=== PATIENT | female | born 2000 | race Caucasian/White ===

== ENCOUNTER 2020-01-14 16:52 | Outpatient (CLI) | payer BC, OTHER ==
--- NOTE | 2020-01-14 17:43 | Non Stress Test Report ---
Non Stress Test Datetime Report Generated by CPN: 01/14/2020 17:43 DEMOGRAPHIC Test Number: 1 EGA NST: 36.4 INDICATION Indication for Study (NST) Other: uc's MONITORING Monitor Explained: Monitor Explained; Test Explained; Patient Verbalized Understanding Time on Monitor: 01/14/2020 17:15 Time off Monitor: 01/14/2020 17:37 NST Duration: 22 NST INTERVENTIONS NST Interventions: None Physician Notified NST: Dr Das BABY A: [id number] BABY A Movement : Present Contraction Frequency : irregular FHR Baseline : 135 Accelerations : 15X15 Decelerations : None Variability : Moderate 6-25bpm NST Review: Meets Criteria for Reactive NST NST Review and Verified By : SAutry NST Results: Reactive NST REPORT Report Trigger: Send Report
== END 2020-01-14 17:49 | disposition home or self-care (01) ==
LOC: LC 16:52
PROVIDERS: ATTEND Obstetrics & Gynecology Gynecology
DX: O47.03 False labor before 37 completed weeks of gestation, third trimester (principal); Z3A.36 36 weeks gestation of pregnancy
CPT/HCPCS: 59025

== ENCOUNTER 2020-02-02 05:08 | Inpatient (IN) | payer BC, OTHER ==
[2020-01-28 09:22] LABS: ABSOLUTE BASOPHILS # (AUTO) 0.1 10^3/uL (0.0-0.2); ABSOLUTE EOSINOPHILS # (AUTO) 0.2 10^3/uL (0.0-0.6); ABSOLUTE LYMPHOCYTES (AUTO) 1.3 10^3/uL (0.5-4.7); ABSOLUTE MONOCYTES (AUTO) 0.7 10^3/uL (0.1-1.4); BASOPHILS % (AUTO) 0.6 % (0-2); EOSINOPHILS % (AUTO) 1.8 % (0-6); HEMATOCRIT 28.9 % (36.0-47.0); HEMOGLOBIN 9.3 g/dL (12.0-15.5); MEAN CORPUSCULAR HEMOGLOBIN 23.2 pg (27.0-33.4); MEAN CORPUSCULAR HGB CONC 32.4 g/dL (32.0-36.0); MEAN CORPUSCULAR VOLUME 72 fl (80-97); MONOCYTES % (AUTO) 6.6 % (3-13); PLATELET COUNT 233 10^3/uL (150-450); RED BLOOD COUNT 4.03 10^6/uL (3.72-5.28); TOTAL CELLS COUNTED % (AUTO) 100 %; WHITE BLOOD COUNT 10.3 10^3/uL (4.0-10.5)
[2020-01-28 09:31] LABS: APPEARANCE,URINE CLEAR; BILIRUBIN,URINE NEGATIVE (NEGATIVE); COLOR,URINE YELLOW; GLUCOSE, URINE NEGATIVE (NEGATIVE); KETONES,URINE NEGATIVE (NEGATIVE); LEUKOCYTE ESTERASE,URINE MODERATE (NEGATIVE); NITRITE,URINE NEGATIVE (NEGATIVE); PROTEIN,URINE NEGATIVE (NEGATIVE); URINE SPECIFIC GRAVITY 1.016; UROBILINOGEN,URINE NEGATIVE mg/dL (<2.0)
[2020-01-28 09:41] LABS: URINE AMPHETAMINES SCREEN NEGATIVE; URINE BARBITURATES SCREEN NEGATIVE; URINE BENZODIAZEPINES SCREEN NEGATIVE; URINE COCAINE SCREEN NEGATIVE; URINE MARIJUANA (THC) SCREEN NEGATIVE; URINE METHADONE SCREEN NEGATIVE; URINE PHENCYCLIDINE SCREEN NEGATIVE
[~2020-02-02 05:08] MED LIST: CEFAZOLIN 2 GM/D5W RTU 2 GM/50 ML RTUPB IV PRN; LACTATED RINGERS 1000 ML IV PRN; LIDOCAINE 0.5% INJ-PF (5 MG/ML) 50 ML SDV SUBCUT PRN; RINGERS SOLUTION,LACTATED 1,000 ML IV PRN
[2020-02-02] MEDS ORDERED: MIDAZOLAM 2 MG/2 ML INJ ONE (07:28)
[2020-02-02] MEDS ORDERED: KETOROLAC TROMETHAMINE INJ/PF 30 MG/1 ML SDV ONE (07:28)
[2020-02-02] MEDS ORDERED: FENTANYL CITRATE INJ/PF 100 MCG/2 ML AMPUL ONE (07:28)
[2020-02-02] MEDS ORDERED: OXYTOCIN 10 UNIT/ML VIAL ONE (07:28)
[2020-02-02] MEDS ORDERED: EPHEDRINE SULFATE INJ 50 MG/1 ML AMPULE ONE (07:28)
[2020-02-02] MEDS ORDERED: ONDANSETRON HCL INJ/PF 4 MG/2 ML SDV ONE (07:29)
[2020-02-02] MEDS ORDERED: ACETAMINOPHEN 1,000 MG/100 ML RTUPB IV ONE (07:29)
[2020-02-02] MEDS ORDERED: ROPIVACAINE HCL 0.2% INJ/PF (2 MG/ML) 20 ML SDV ONE (07:29)
[2020-02-02] MEDS ORDERED: DIPH/PERTUSS(ACELL)/TETANUS VAC/PF 0.5 ML SYR (>=10YO) IM PRN (08:57)
[2020-02-02] MEDS ORDERED: OXYTOCIN/0.9 % SODIUM CHLORIDE 30 UNIT/500 ML RTUINJ IV PRN (08:57)
[2020-02-02] MEDS ORDERED: MEASLES,MUMPS&RUBELLA VACC/PF 0.5 ML VIAL SUBCUT PRN (08:57)
[2020-02-02] MEDS ORDERED: SIMETHICONE 80 MG TAB.CHEW PO PRN (08:57)
[2020-02-02] MEDS ORDERED: RINGERS SOLUTION,LACTATED 1,000 ML IV PRN (08:57)
[2020-02-02] MEDS ORDERED: PROMETHAZINE HCL INJ 25 MG/1 ML VIAL IV PRN (08:57)
[2020-02-02] MEDS ORDERED: ACETAMINOPHEN 325 MG TABLET PO PRN (08:57)
[2020-02-02] MEDS ORDERED: OXYCODONE-ACETAMINOPHEN 5-325 MG TABLET PO PRN (08:57)
[2020-02-02] MEDS ORDERED: HYDROMORPHONE HCL INJ/PF 2 MG/ML AMPULE IV PRN (08:58)
--- NOTE | 2020-02-02 09:09 | Operative Report ---
Operative Report DATE OF SURGERY: 02/02/20 PREOPERATIVE DIAGNOSIS: Prior section x1. Term IUP at 39+ weeks EGA. Bicornuate uterus. Breech presentation POSTOPERATIVE DIAGNOSIS: Same as above OPERATION: Repeat section ANESTHESIA: Spinal TISSUE REMOVED OR ALTERED: Placenta COMPLICATIONS: None ESTIMATED BLOOD LOSS: 700cc INTRAOPERATIVE FINDINGS: Bicorniuate uterus with viabable female in left side-breech presentation. Bilateral ovaries and fallopian tubes normal grossly. Mild scar tissue at level of rectus fascia PROCEDURE: IV fluids: per anesthesia record Urinary output: 250 cc Findings: Bicornuate (heart shaped) appearing uterus, normal bilateral fallopian tubes and ovaries. Placenta normal grossly. Viable female with Apgars of 8 and 9, at 1 and 5 minutes respectively. Position: To recovery room in stable condition Description of procedure: The patient was taken to the operating room and spinal anesthesia was administered and found to be adequate. She was then placed on the OR table in the supine position with a slight leftward tilt. Patient was prepped and draped in usual sterile fashion. Ancef 2 gms was given IV prior to the procedure for infection prophylaxis. Timeout was taken. A Pfannenstiel skin incision was then made approximately 3 cm above the pubic symphysis and carried down to level the rectus fascia. The rectus fascia was then nicked in the midline with a scalpel and the fascial incision was extended laterally with use of curved Kenney scissors. The rectus fascia was then grasped with 2 Kocker clamps elevated and the underlying rectus muscle was dissected off both bluntly and sharply. Scar tissue noted as above. Any bleeding controlled with cautery. The rectus muscles were then split in the midline and the peritoneum was entered. The peritoneal incision was then extended by manually stretching the peritoneum. The bladder blade was positioned. Bladder flap created and the bladder was noted to be out of harm's way. A scalpel was then used in the lower uterine for the hysterotomy, slowly until amniotomy was obtained a large amount of fluid was noted. The uterine incision was then manually stretched. The infant was noted to be in breech postion. Feet and legs brought through the hysterotomy incision and trunk delivered to the level of the scapula. Each arm delivered without difficulty. The head then delivered with minmal difficulty. The cord was cut clamped and the was handed off to the nurse awaiting. was crying prior to hand off- oral suctioning done before hand off. The placenta was manually delivered. Using a lap gauze the uterus was cleared of all clots and debris. The uterus was then exteriorized and a bladder blade was repositioned. The uterine incision was then closed with 0 Chromic suture in a running locked fashion. A second layer of the same suture was used in a running locked imbricated fashion. The uterine incision was inspected and noted to be hemostatic. The posterior aspect of the uterus was then inspected and anatomy was seen as above. The uterus was returned to its normal anatomic position within the abdominal cavity. Warm saline irrigation was used to clear all clots and debris from the abdomen. The uterine incision was inspected once more and noted to remain hemostatic. The bladder blade was removed and the peritoneum was closed with 2-0 chromic in a running fashion. The rectus muscles were then reapproximated and the rectus fascia was closed with a #1 PDS in a running fashion. The subcutaneous tissue was then inspected and any bleeding was controlled with Bovie electrocautery. The subcutaneous tissue was then closed with 2-0 Plain Gut suture in a running fashion. The skin was then closed with 4-0 Monocryl in a running subcuticular fashion. The skin incision was then clean dried and Dermabond was applied over the skin incision. All instrument sponge and needle counts were correct x3 for the procedure the patient tolerated the procedure well. She will proceed to recovery room in stable condition
[2020-02-02] MEDS ORDERED: HYDROMORPHONE HCL INJ/PF 2 MG/ML AMPULE ONE (09:33)
--- NOTE | 2020-02-02 09:52 | Delivery Summary ---
Del Sum A-C Datetime Report Generated by CPN: 02/02/2020 09:52 DELIVERY PERSONNEL DELIVERY PERSONNEL: [id number] Delivery Doctor:: Sue Lopez MD BIOLOGY INSTRUCTOR:: Mary Medina CRNA Consulting Technical Director:: Radha Monteiro RN Transfer Clerk:: Dr. Naman Garcia Nursery Nurse:: Caridad Hoffmann RN Numerical Control Machine Machinist/FAMILY LAW MEDIATOR: [facility] Numerical Control Machine Machinist/FAMILY LAW MEDIATOR: Estella Garcia, CAKE DECORATOR MATERNAL INFORMATION Delivery Anesthesia: Spinal Medications After Delivery: Pitocin Drip 20 Units/1000ml NSS Maternal Complications: None LABOR SUMMARY EDC: 02/07/2020 00:00 No. Babies in Womb: 1 Attempted: No Labor Anesthesia: None LABOR INFORMATION Reason for Induction: Not Applicable Oxytocin: N/A Group B Beta Strep: negative Steroids Given: None Reason Steroids Not Administered: Not Applicable MEMBRANES Membranes Rupture Method: Artificial Rupture of Membranes: 02/02/2020 08:19 Length of Rupture (hr): 0.02 Amniotic Fluid Color: Clear Amniotic Fluid Amount: Moderate Amniotic Fluid Odor: Normal STAGES OF LABOR Stage 3 hr: 0 Stage 3 min: 3 VAGINAL DELIVERY Episiotomy: None Laceration #1: None Laceration Repair: Not Applicable Sponge Count Correct: N/A Sharps Count Correct: N/A CSECTION DELIVERY Primary Indication: Repeat Elective CSection Urgency: Scheduled CSection Incidence: Repeat Labor: No Labor Elective: Elective CSection Incision: Lower Uterine Transverse BABY A INFORMATION Delivery Date/Time: 02/02/2020 08:20 Method of Delivery: Born in Route : No : N/A Forceps: N/A Vacuum Extraction: N/A Shoulder Dystocia : No PRESENTATION/POSITION BABY A Presentation: Breech Breech Presentation: Double Footling PLACENTA INFORMATION BABY A Placenta Delivery Time : 02/02/2020 08:23 Placenta Method of Delivery: Spontaneous Placenta Status: Delivered SCORES BABY A Heart Rate 1 min: >100 bpm Resp Effort 1 min: Good Cry Reflex Irritability 1 min: Cough or Sneeze or Pulls Away Muscle Tone 1 min: Active Motion Color 1 min: Blue/Pale Resuscitation Effort 1 min: Tactile Stimulation SCORE 1 MIN: 8 Heart Rate 5 min: >100 bpm Resp Effort 5 min: Good Cry Reflex Irritability 5 min: Cough or Sneeze or Pulls Away Muscle Tone 5 min: Active Motion Color 5 min: Body [place], Extremities Blue Resuscitation Effort 5 min: Tactile Stimulation SCORE 5 MIN: 9 INFANT INFORMATION BABY A Gestational Age at Delivery: 39.2 Gestational Status: Full Term- 39- 40.6 Weeks Infant Outcome : Liveborn Infant Condition : Stable Infant Sex: Female WEIGHT/LENGTH BABY A Birthweight (gm): 3340 Weight (lb): 7 Weight (oz): 6 Infant Length (in): 20.50 Infant Length (cm): 52.07 CORD INFORMATION BABY A No. Cord Vessels: 3 Nuchal Cord : N/A Cord Blood Taken: Yes-For Storage (Mom's Blood type +) Suction: Mouth ASSESSMENT BABY A Infant Complications: None Physical Findings at Delivery: Within Normal Limits Respirations: Appears Normal Skin to Skin: No Transfer Clerk/ALS Called : Yes Care By: Flora Hoffmann RN Transferred To: Nursery BABY B INFORMATION : N/A
[2020-02-02] MEDS: PRENATAL VITAMIN W DHA CAPSULE PO SCH (10:35)
[2020-02-02] MEDS: DOCUSATE SODIUM 100 MG CAPSULE PO SCH ×2 (10:35→17:16)
[2020-02-02] MEDS ORDERED: MORPHINE SULFATE 10 MG/ML INJ IV ONE (10:38)
[2020-02-02] MEDS ORDERED: MORPHINE SULFATE 10 MG/ML INJ ONE (10:40)
[2020-02-02] MEDS ORDERED: KETOROLAC TROMETHAMINE INJ/PF 30 MG/1 ML SDV IV SCH (14:00)
[2020-02-02] MEDS: KETOROLAC TROMETHAMINE INJ/PF 30 MG/1 ML SDV IV SCH (17:16)
[2020-02-02] MEDS: OXYCODONE-ACETAMINOPHEN 5-325 MG TABLET PO PRN (22:18)
[2020-02-03] MEDS: KETOROLAC TROMETHAMINE INJ/PF 30 MG/1 ML SDV IV SCH (01:39)
[2020-02-03] MEDS: OXYCODONE-ACETAMINOPHEN 5-325 MG TABLET PO PRN (05:57)
[2020-02-03 06:41] LABS: MEAN CORPUSCULAR HEMOGLOBIN 22.6 pg (27.0-33.4); MEAN CORPUSCULAR HGB CONC 31.7 g/dL (32.0-36.0); MEAN CORPUSCULAR VOLUME 71 fl (80-97); PLATELET COUNT 172 10^3/uL (150-450); RED BLOOD COUNT 3.37 10^6/uL (3.72-5.28); RED CELL DISTRIBUTION WIDTH 16.9 % (11.5-14.0)
[2020-02-03 06:45] LABS: HEMOGLOBIN 7.6 g/dL (12.0-15.5)
[2020-02-03] MEDS ORDERED: IRON SUCROSE COMPLEX INJ/PF 100 MG/5 ML SDV IV ONE (08:00)
[2020-02-03] MEDS: IBUPROFEN 800 MG TABLET PO SCH ×2 (09:40→18:14)
[2020-02-03] MEDS: DOCUSATE SODIUM 100 MG CAPSULE PO SCH ×2 (09:40→18:14)
[2020-02-03] MEDS: PRENATAL VITAMIN W DHA CAPSULE PO SCH (09:40)
--- NOTE | 2020-02-03 12:47 | PDOC PROGRESS REPORT ---
Subjective-OB Progress Note for:: 02/03/20 Subjective: 20yo G3 now P2 s/p repeat ppd 1 . Pt ambulating and voiding without difficulty. Denies sob,lightheadedness, dizziness or any concerns today. Reports pain well controlled with medication Physical Exam (OB) Vital Signs: Temp Pulse Resp BP Pulse Ox 98.0 F 66 16 107/66 98 02/03/20 08:20 02/03/20 08:20 02/03/20 08:20 02/03/20 08:20 02/03/20 08:20 Intake & Output 02/02/20 02/03/20 02/04/20 06:59 06:59 06:59 Intake Total 600 Output Total 2450 Balance -1850 - General General Appearance: Appears well In distress: None - PIH/Pre-Eclampsia Clonus: Negative Headache: Absent Epigastric Pain: No Visual Changes: No - Dressing Removed: No Incision: Dressing Closure Type: Surgical Glue - Bilateral Tubal Ligation Dressing Removed: No - Lochia Lochia Amount: Small 10-25 ml Lochia Color: Rubra/Red - Abdomen Description: Firm Hernia Present: No Fundal Description: Firm Fundal Height: u/u - u/2 - Respiratory Respiratory Status: No respiratory distress - Extremities Upper extremity: Normal inspection Lower extremities: Normal inspection - Neurological Cognition: Normal Orientation: AAOx4 - Psychological Associated symptoms: Normal affect, Normal mood Objective-Diagnostic Laboratory: 02/03/20 06:00 02/03/20 06:00 WBC 12.0 H RBC 3.37 L Hgb 7.6 L Hct 24.0 L MCV 71 L MCH 22.6 L MCHC 31.7 L RDW 16.9 H Plt Count 172 Assessment and Plan(PN) - Assessment and Plan (1) Anemia complicating , third trimester Is this a current diagnosis for this admission?: Yes Plan: had IV iron this am, increase dietary iron and FeSO4 bid, continue to monitor for s/s of hemorrhage (2) Acute blood loss anemia Is this a current diagnosis for this admission?: Yes Plan: same as above, will repeat CBC in the AM (3) Bicornate uterus complicating Qualifiers: Trimester: third trimester Qualified Code(s): O34.03 - Maternal care for unspecified congenital malformation of uterus, third trimester; Q51.3 - Bicornate uterus Is this a current diagnosis for this admission?: Yes Plan: delivered (4) Status post repeat low transverse section Is this a current diagnosis for this admission?: Yes Plan: routine pp care - Time Spent with Patient Time with patient: Less than 15 minutes Smoking Education Provided: Over 3 minutes Medications reviewed and adjusted accordingly: Yes - Disposition Anticipated Discharge: Home Within: within 24 hours
[2020-02-03] MEDS ORDERED: IBUPROFEN 800 MG TABLET PO SCH (14:00)
[2020-02-04] MEDS: IBUPROFEN 800 MG TABLET PO SCH ×2 (02:10→09:53)
[2020-02-04 05:38] LABS: HEPATITIS C VIRUS AB <0.1 s/co ratio (0.0-0.9)
[2020-02-04 06:57] LABS: HEMATOCRIT 25.1 % (36.0-47.0); MEAN CORPUSCULAR HEMOGLOBIN 22.4 pg (27.0-33.4); MEAN CORPUSCULAR HGB CONC 31.4 g/dL (32.0-36.0); MEAN CORPUSCULAR VOLUME 71 fl (80-97); PLATELET COUNT 184 10^3/uL (150-450); RED BLOOD COUNT 3.51 10^6/uL (3.72-5.28); RED CELL DISTRIBUTION WIDTH 17.8 % (11.5-14.0); WHITE BLOOD COUNT 11.2 10^3/uL (4.0-10.5)
[2020-02-04 06:58] LABS: HEMOGLOBIN 7.9 g/dL (12.0-15.5)
[2020-02-04] MEDS: PRENATAL VITAMIN W DHA CAPSULE PO SCH (09:53)
[2020-02-04] MEDS: DOCUSATE SODIUM 100 MG CAPSULE PO SCH (09:54)
--- NOTE | 2020-02-04 10:05 | PDOC PROGRESS REPORT ---
Subjective-OB Progress Note for:: 02/04/20 Subjective: Doing well, ready to go home, pain under control, eating and voiding, passing gas Physical Exam (OB) Vital Signs: Temp Pulse Resp BP Pulse Ox 97.4 F 64 16 112/64 100 02/04/20 07:23 02/04/20 07:23 02/04/20 07:23 02/04/20 07:23 02/04/20 07:23 Intake & Output 02/03/20 02/04/20 02/05/20 06:59 06:59 06:59 Intake Total 600 1100 Output Total 2450 Balance -1850 1100 - PIH/Pre-Eclampsia Clonus: Negative Headache: Absent Epigastric Pain: No Visual Changes: No - Dressing Removed: No Incision: Well Approximated Closure Type: Surgical Glue - Bilateral Tubal Ligation Dressing Removed: No - Lochia Lochia Amount: Scant < 10 ml Lochia Color: Rubra/Red - Abdomen Description: Soft Hernia Present: No Fundal Description: Firm, Midline Fundal Height: u/u - u/2 Objective-Diagnostic Laboratory: 02/04/20 06:22 02/04/20 06:22 WBC 11.2 H RBC 3.51 L Hgb 7.9 L Hct 25.1 L MCV 71 L MCH 22.4 L MCHC 31.4 L RDW 17.8 H Plt Count 184 Assessment and Plan(PN) - Assessment and Plan (1) Anemia complicating , third trimester Is this a current diagnosis for this admission?: Yes (2) Acute blood loss anemia Is this a current diagnosis for this admission?: Yes (3) Bicornate uterus complicating Qualifiers: Trimester: third trimester Qualified Code(s): O34.03 - Maternal care for unspecified congenital malformation of uterus, third trimester; Q51.3 - Bicornate uterus Is this a current diagnosis for this admission?: Yes (4) Status post repeat low transverse section Is this a current diagnosis for this admission?: Yes - Time Spent with Patient Time with patient: Less than 15 minutes Smoking Education Provided: Over 3 minutes Medications reviewed and adjusted accordingly: Yes - Disposition Anticipated Discharge: Home Within: within 24 hours
--- NOTE | 2020-02-04 10:10 | PDOC DISCHARGE SUMMARY ---
Impression - Admit/DC Date/PCP Admission Date/Primary Care Provider: 02/02/20 05:08 CAROLINA XAVIER MD Discharge Date: 02/04/20 - Discharge Diagnosis (1) Anemia complicating , third trimester Is this a current diagnosis for this admission?: Yes (2) Acute blood loss anemia Is this a current diagnosis for this admission?: Yes (3) Bicornate uterus complicating Is this a current diagnosis for this admission?: Yes (4) Status post repeat low transverse section Is this a current diagnosis for this admission?: Yes - Additional Information Discharge Diet: As Tolerated, Regular Discharge Activity: Activity As Tolerated, No Driving, Pelvic Rest, No tub bath Referrals: CAROLINA XAVIER MD [Primary Care Provider] - ([facility] 1 week) Prescriptions: Oxycodone HCl/Acetaminophen [Percocet 5-325 mg Tablet] 1 tab PO Q4HP PRN #20 tablet PRN Reason: Ibuprofen [Motrin 800 mg Tablet] 800 mg PO Q8H #60 tablet Home Medications: Ferrous Sulfate [Feosol 325 mg Tablet] 325 mg PO DAILY 01/14/20 Pnv 102/Iron/Folate 1/Dss/Dha [Vitafol Fe+ Docusate Combo Pck] 1 each PO DAILY 01/14/20 Ibuprofen [Motrin 800 mg Tablet] 800 mg PO Q8H #60 tablet 02/04/20 Oxycodone HCl/Acetaminophen [Percocet 5-325 mg Tablet] 1 tab PO Q4HP PRN #20 tablet 02/04/20 HPI Gestational Age: 39 Reason(s) for Admission: Ceasarean Section-Repeat Procedures: NST, Ultrasound Intrapartum Procedure(s): : Low Cervical, Transverse Hospital Course Hospital Course: normal post op Results Laboratory Results: WBC 11.2 10^3/uL (4.0-10.5) H 02/04/20 06:22 RBC 3.51 10^6/uL (3.72-5.28) L 02/04/20 06:22 Hgb 7.9 g/dL (12.0-15.5) L 02/04/20 06:22 Hct 25.1 % (36.0-47.0) L 02/04/20 06:22 MCV 71 fl (80-97) L 02/04/20 06:22 MCH 22.4 pg (27.0-33.4) L 02/04/20 06:22 MCHC 31.4 g/dL (32.0-36.0) L 02/04/20 06:22 RDW 17.8 % (11.5-14.0) H 02/04/20 06:22 Plt Count 184 10^3/uL (150-450) 02/04/20 06:22 Lymph % (Auto) 13.0 % (13-45) 01/28/20 08:31 [place] % (Auto) 6.6 % (3-13) 01/28/20 08:31 Eos % (Auto) 1.8 % (0-6) 01/28/20 08:31 Baso % (Auto) 0.6 % (0-2) 01/28/20 08:31 Absolute Neuts (auto) 8.0 10^3/uL (1.7-8.2) 01/28/20 08:31 Absolute Lymphs (auto) 1.3 10^3/uL (0.5-4.7) 01/28/20 08:31 Absolute Monos (auto) 0.7 10^3/uL (0.1-1.4) 01/28/20 08:31 Absolute Eos (auto) 0.2 10^3/uL (0.0-0.6) 01/28/20 08:31 Absolute Basos (auto) 0.1 10^3/uL (0.0-0.2) 01/28/20 08:31 Seg Neutrophils % 78.0 % (42-78) 01/28/20 08:31 Urine Color YELLOW 01/28/20 08:22 Urine Appearance CLEAR 01/28/20 08:22 Urine pH 7.0 (5.0-9.0) 01/28/20 08:22 Ur Specific [place] 1.016 01/28/20 08:22 Urine Protein NEGATIVE mg/dL (NEGATIVE) 01/28/20 08:22 Urine Glucose (UA) NEGATIVE mg/dL (NEGATIVE) 01/28/20 08:22 Urine Ketones NEGATIVE mg/dL (NEGATIVE) 01/28/20 08:22 Urine Blood NEGATIVE (NEGATIVE) 01/28/20 08:22 Urine Nitrite NEGATIVE (NEGATIVE) 01/28/20 08:22 Urine Bilirubin NEGATIVE (NEGATIVE) 01/28/20 08:22 Urine Urobilinogen NEGATIVE mg/dL (<2.0) 01/28/20 08:22 Ur Leukocyte Esterase MODERATE (NEGATIVE) H 01/28/20 08:22 Urine WBC (Auto) 3 /HPF 01/28/20 08:22 Urine RBC (Auto) 1 /HPF 01/28/20 08:22 Urine Bacteria (Auto) TRACE /HPF 01/28/20 08:22 Squamous Epi Cells Auto 3 /HPF 01/28/20 08:22 Urine Mucus (Auto) OCC /LPF 01/28/20 08:22 Urine Ascorbic Acid NEGATIVE (NEGATIVE) 01/28/20 08:22 Urine Opiates Screen NEGATIVE 01/28/20 08:22 Urine Methadone Screen NEGATIVE 01/28/20 08:22 Ur Barbiturates Screen NEGATIVE 01/28/20 08:22 Ur Phencyclidine Scrn NEGATIVE 01/28/20 08:22 Ur Amphetamines Screen NEGATIVE 01/28/20 08:22 U Benzodiazepines Scrn NEGATIVE 01/28/20 08:22 Urine Cocaine Screen NEGATIVE 01/28/20 08:22 U Marijuana (THC) Screen NEGATIVE 01/28/20 08:22 COVID-19 Source NASOPHARYNGEAL 01/28/20 08:29 COVID-19 (ELLI) NOT DETECTED 01/28/20 08:29 Hepatitis C (SAHIL) <0.1 s/co ratio (0.0-0.9) 02/02/20 12:10 Hep C Verif Com 1 Comment (.) 02/02/20 12:10 Blood Type A POSITIVE 02/01/20 14:05 Antibody Screen NEGATIVE 02/01/20 14:05 Plan Health Concerns: pain management Plan of Treatment: d/c home, instructions given Goals: no complications Time Spent: Less than 30 Minutes
[2020-02-04 12:28] VITALS: BP 122/82
== END 2020-02-04 13:15 | disposition home or self-care (01) | DRG 787 ==
LOC: 2S 05:08
PROVIDERS: ADMIT Obstetrics & Gynecology; ATTEND Obstetrics & Gynecology
PROC: 10D00Z1 Extraction of Products of Conception, Low, Open Approach (ICD-10-PCS; principal; 2020-02-02)
DX: O34.211 Maternal care for low transverse scar from previous cesarean delivery (principal); D62 Acute posthemorrhagic anemia; N85.8 Other specified noninflammatory disorders of uterus; O34.03 Maternal care for unspecified congenital malformation of uterus, third trimester; O32.1XX0 Maternal care for breech presentation, not applicable or unspecified; O99.02 Anemia complicating childbirth; O43.123 Velamentous insertion of umbilical cord, third trimester; Z20.828 Contact with and (suspected) exposure to other viral communicable diseases; Q51.3 Bicornate uterus; Z3A.39 39 weeks gestation of pregnancy; Z37.0 Single live birth
CPT/HCPCS: 1961; 36415; 59025; 64450; 76942; 80307; 81001; 85025; 85027; 86803; 86804; 86850; 86900; 86901; 87635; 88307; 94760; 94799; C1758; C9803; J0131; J0690; J1170; J1756; J1885; J2250; J2270; J2405; J2550; J2590; J2795; J3010; J3490; J7120